=== PATIENT | female | born 1985 | race Caucasian/White ===

== ENCOUNTER → 2016-12-17 | Outpatient (CLI) | payer OTHER ==
[~2016-12-17] MED LIST: ACET50TA PO; ANUS2.5C2 PR; COLA50CA3 PO; IBUP80TA PO; LANOOIN21 TOP; MOM30SS PO; PRENTAB9 PO
--- NOTE | 2016-12-18 11:34 | REP ---
OB ULTRASOUND: HISTORY: anatomy. COMPARISON: No pertinent priors. Multiple ultrasonographic images of the gravid uterus show a single living intrauterine gestation in a cephalic presentation. Doppler interrogation of the heart shows a heart rate of 157 beats per minute. The placenta is posterior and not low lying. The subjective amniotic fluid volume is within normal limits. The cervix measures 6.9 cm in length and is closed. Evaluation of the maternal adnexal spaces showed no abnormalities. Structures visualized as unremarkable are as follows: Thalami, cavum septum pellucidum, cerebellum, cisterna magna, cerebral ventricles, spine, kidneys, urinary bladder, stomach, cord insertion, three vessel umbilical cord, extremities, four-chamber heart, right and left ventricular outflow tracts and facial features. BPD 4.6 cm = 20 weeks 0 days HC 17.5 cm = 20 weeks 0 days AC 15.1 cm = 20 weeks 2 days FL 3.4 cm = 20 weeks 6 days The estimated weight is 356 grams, which is at the 79th percentile for a 19 week 4 day gestational age. IMPRESSION: Single living intrauterine gestation as described above with an estimated gestational age of 20 weeks 3 days via composite criteria with an estimated date of delivery of 05/03/2017 by today's exam. No anomalies were detected. Signed by Marcos Perez DO 12/18/2016 11:36 A
== END ==
LOC: M RAD 15:52
PROVIDERS: ATTEND Specialist
DX: Z34.82 Encounter for supervision of other normal pregnancy, second trimester (principal)

== ENCOUNTER → 2017-02-02 | Outpatient (CLI) | payer OTHER ==
[2017-02-02 19:45] LABS: BASO % 0.3 % (0.0-1.0); EOS # 0.1 K/mm3 (0.0-0.50); EOS % 1.2 % (0.0-3.0); LARGE UNSTAINED CELL # 0.1 K/mm3 (0.0-0.4); LARGE UNSTAINED CELL % 1.1 % (0.0-4.0); LYMPH # 1.9 K/mm3 (1.5-4.5); LYMPH % 19.8 % (24.0-44.0); MEAN CORPUSCULAR HEMOGLOBIN 31.5 pg (27.0-33.0); MEAN CORPUSCULAR HGB CONC 33.5 g/dl (32.0-36.5); MEAN CORPUSCULAR VOLUME 94.2 fl (80.0-96.0); MONO # 0.5 K/mm3 (0.0-0.8); MONO % 4.9 % (0.0-5.0); NEUTROPHILS # 7.1 K/mm3 (1.8-7.7); NEUTROPHILS % 72.6 % (36.0-66.0); PLATELET COUNT, AUTOMATED 327 k/mm3 (150-450); RED CELL DISTRIBUTION WIDTH 13.4 % (11.5-14.5); WHITE BLOOD COUNT 9.7 K/mm3 (4.0-10.0)
== END ==
LOC: M SMT 14:03
PROVIDERS: ATTEND Specialist
DX: Z34.82 Encounter for supervision of other normal pregnancy, second trimester (principal)
CPT/HCPCS: 36415; 82950; 85025; 86850; 86900; 86901; J2790

== ENCOUNTER → 2017-04-14 | Outpatient (REF) | payer OTHER ==
[~2017-04-14] MED LIST changes: +ALPR0.5T3 PO; +LORA2CON5 PO; +METO1TAB32 PO; +METO25TA4 PO; +PREN1TAB11 PO; +PRENTAB31 PO; +SENO8.6T10 PO; +TUMS500C PO; +TYLE500T78 PO; +XANA0.5T PO
== END ==
LOC: M LAB REF 18:41
PROVIDERS: ATTEND Specialist
DX: Z34.83 Encounter for supervision of other normal pregnancy, third trimester (principal)

== ENCOUNTER 2017-04-20 03:18 | Observation (INO) | payer OTHER ==
[~2017-04-20] VITALS: Ht 149.9 cm; Wt 85.4 kg
[~2017-04-20 03:18] MED LIST changes: -ALPR0.5T3 PO; -LORA2CON5 PO; -METO1TAB32 PO; -METO25TA4 PO; -PREN1TAB11 PO; -PRENTAB31 PO; -SENO8.6T10 PO; -TUMS500C PO; -TYLE500T78 PO; -XANA0.5T PO
[2017-04-20] MEDS ORDERED: METO1TAB32 PO (03:27)
[2017-04-20] MEDS ORDERED: ADENOSINE 6MG/2ML INJECTION (J0153) As Ordered ONE ×2 (03:30→03:34)
[2017-04-20] MEDS ORDERED: ADENOSINE 6MG/2ML INJECTION (J0153) IV STA ×2 (03:30→03:32)
[2017-04-20] MEDS ORDERED: NS 1,000 ML IV ONE ×2 (03:30→05:15)
[2017-04-20] MEDS ORDERED: ONDANSETRON 4MG/2ML VIAL (J2405) As Ordered ONE (03:33)
[2017-04-20] MEDS ORDERED: ONDANSETRON 4MG/2ML VIAL (J2405) IV ONE (03:45)
[2017-04-20 03:47] LABS: BASO % 0.3 % (0.0-1.0); EOS # 0.1 K/mm3 (0.0-0.50); LARGE UNSTAINED CELL # 0.3 K/mm3 (0.0-0.4); LARGE UNSTAINED CELL % 3.1 % (0.0-4.0); LYMPH # 2.2 K/mm3 (1.5-4.5); LYMPH % 24.3 % (24.0-44.0); MEAN CORPUSCULAR HEMOGLOBIN 30.3 pg (27.0-33.0); MEAN CORPUSCULAR HGB CONC 33.5 g/dl (32.0-36.5); MEAN CORPUSCULAR VOLUME 90.5 fl (80.0-96.0); MONO # 0.4 K/mm3 (0.0-0.8); MONO % 4.8 % (0.0-5.0); NEUTROPHILS # 6.1 K/mm3 (1.8-7.7); NEUTROPHILS % 66.5 % (36.0-66.0); PLATELET COUNT, AUTOMATED 289 k/mm3 (150-450); RED CELL DISTRIBUTION WIDTH 13.4 % (11.5-14.5); WHITE BLOOD COUNT 9.2 K/mm3 (4.0-10.0)
[2017-04-20 03:59] LABS: ANION GAP 11 MEQ/L (8-16); BLOOD UREA NITROGEN 10 MG/DL (7-18); CALCIUM LEVEL 8.9 MG/DL (8.5-10.1); CARBON DIOXIDE LEVEL 22 MEQ/L (21-32); CHLORIDE LEVEL 106 MEQ/L (98-107); CREATININE FOR GFR 0.67 MG/DL (0.55-1.02); GLOMERULAR FILTRATION RATE > 60.0 (>60); GLUCOSE, FASTING 104 MG/DL (70-105); MAGNESIUM LEVEL 1.8 MG/DL (1.8-2.4); POTASSIUM SERUM 3.3 MEQ/L (3.5-5.1); SODIUM LEVEL 139 MEQ/L (136-145)
[2017-04-20] MEDS ORDERED: ISOVUE-370 76% 100ML VIAL (Q9967) As Ordered ONE (04:16)
[2017-04-20 04:31] LABS: INR 0.89
--- NOTE | 2017-04-20 05:00 | REPUSA ---
CLINICAL HISTORY: Chest pain, exclude PE. TECHNIQUE: Multiple incremental axial, coronal and oblique images are obtained from the thoracic inle t to the upper abdomen. Intravenous contrast material was administered as per pulmonary embolism prot ocol. COMMENTS: There is excellent opacification of pulmonary arterial system without evidence for pulmonary embolism . Aorta is of normal caliber without evidence for dissection or aneurysm. There is no evidence of pleural or parenchymal mass. There are no pleural effusions. There is no evid ence of hilar or mediastinal lymphadenopathy. The heart and great vessels are within normal limits. Images of the upper abdomen demonstrate no evidence of adrenal mass. The bony structures are free of lytic or blastic lesions. IMPRESSION: No evidence for pulmonary embolism. Thank you for your kind referral of this patient.
[2017-04-20] MEDS ORDERED: TUMS500C PO (05:17)
[2017-04-20] MEDS ORDERED: PREN1TAB11 PO (05:17)
[2017-04-20] MEDS ORDERED: TYLE500T78 PO (05:17)
[2017-04-20 06:42] VITALS: BP 108/63
--- NOTE | 2017-04-20 07:06 | HPE ---
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 She also had substernal chest discomfort. She was diagnosed with supraventricular tachycardia (SVT) early in her and started on metoprolol. Her elevated heart rate did not respond to an extra dose of metoprolol or vagal maneuvers and persisted for greater than an hour. Upon presentation to the emergency room, she was noted to have a heart rate of 210 beats per minute. She required adenosine in order to convert to a normal heart rate. A CT scan of the chest was negative for pulmonary embolus and patient was admitted for further management. COURSE: The patient initiated care at 8 weeks gestation on 10/01/2016. Her first trimester blood pressure was 116/70, weight 174 pounds. At 34 weeks gestation, the patient was seen at [facility] with heart rate greater than 200 beats per minute and was diagnosed with SVT. She had a workup with Dr. Jaimes including a normal echocardiogram. She was eventually started on metoprolol 50 mg twice a day with good effect until the day of admission. OBSTETRICAL HISTORY: 1. February of 2013 at 37 weeks vaginal delivery of a 5 pound 13 ounce male . No complications. MEDICAL HISTORY: 1. SVT. SURGICAL HISTORY: 1. Breast reduction in 2002. 2. Toe surgery in 2001. 3. Lipoma excision in 2011. 4. Tonsillectomy in 2015. ALLERGIES: 1. ROCEPHIN. SOCIAL HISTORY: The patient is . She lives in [place]. She denies cigarettes, alcohol or drug use. 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 FAMILY HISTORY: Noncontributory. PHYSICAL EXAMINATION: Blood pressure 118/76, pulse 87. She is in no apparent distress. HEAD/NECK EXAM: Normal. LUNGS: Clear. HEART: Irregular rate and rhythm. ABDOMEN: Nontender. Gravid. heart tone category 1. EXTREMITIES: Nontender. LABS: Blood type A negative. Rubella immune. RPR nonreactive. Hepatitis B and C negative. HIV negative. Group B Streptococcus (GBS) positive on 04/14/2017. ASSESSMENT: 31-year-old 2, para 1 female at 37-2/7 weeks gestation who presents with a severe episode of supraventricular tachycardia (SVT). PLAN: Admit the patient on 04/20/2017. Given that her SVT is recurrent and resistant to beta-blockers, I am going to recommend moving towards delivery via labor induction. Once the baby is delivered she can followup as an outpatient to have surgical treatment of her abnormal heart conduction pathway. The patient will receive GBS prophylaxis in labor.
--- NOTE | 2017-04-21 18:23 | ECGEPIP ---
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
[2017-04-25] MEDS ORDERED: XANA0.5T PO (16:58)
== END 2017-04-20 06:44 | disposition admitted as inpatient to this hospital (09) ==
LOC: M ED 03:18 → M ED INP 06:12
PROVIDERS: ADMIT Specialist; ATTEND Specialist
DX: O99.413 Diseases of the circulatory system complicating pregnancy, third trimester (principal); Z3A.37 37 weeks gestation of pregnancy; I47.1 Supraventricular tachycardia
CPT/HCPCS: 59025; 71275; 80048; 82550; 82553; 83735; 85025; 85610; 85730; 93005; 93041; 94760; 96374; 96375; 96376; 99285; J0153; J2405; Q9967

== ENCOUNTER 2017-04-20 06:09 | Inpatient (IN) | payer OTHER ==
[~2017-04-20] VITALS: Ht 149.9 cm; Wt 87.0 kg
[2017-04-20] VITALS (28 sets, daily range): BP systolic 99–154; BP diastolic 55–110
[~2017-04-20 06:09] MED LIST changes: +METO1TAB32 PO; +PREN1TAB11 PO; +TUMS500C PO; +TYLE500T78 PO
[2017-04-20 09:42] LABS: MEAN CORPUSCULAR HEMOGLOBIN 31.1 pg (27.0-33.0); MEAN CORPUSCULAR HGB CONC 34.1 g/dl (32.0-36.5); MEAN CORPUSCULAR VOLUME 91.2 fl (80.0-96.0); RED CELL DISTRIBUTION WIDTH 13.4 % (11.5-14.5); WHITE BLOOD COUNT 10.7 K/mm3 (4.0-10.0)
[2017-04-20] MEDS: miSOPROStol 50 MCG 1/2 TAB (S0191) PO SCH ×2 (10:31→14:41)
[2017-04-20] MEDS ORDERED: CALCIUM CARBONATE 500 MG CHEW U/D PO PRN (11:15)
[2017-04-20] MEDS ORDERED: LR 1,000 ML IV SCH (18:16)
[2017-04-20] MEDS ORDERED: OXYTOCIN DRIP 30 UNITS in APPROPRIATE DILUENT 1 EA IV SCH (18:30)
[2017-04-20] MEDS ORDERED: FENTANYL 2MCG/ML ROPIVACAINE 0.2% IN 0.9% NACL 200ML IVBAG As Ordered ONE (19:16)
[2017-04-20] MEDS ORDERED: EPIDURAL/PCA KEYS XX PRN (20:30)
[2017-04-20] MEDS ORDERED: LACTATED RINGER'S 1000 ML IV PRN (20:30)
[2017-04-20] MEDS ORDERED: EPIDURAL COMMENT XX SCH (20:30)
[2017-04-20] MEDS ORDERED: ONDANSETRON 4MG/2ML VIAL (J2405) IV PRN (20:30)
[2017-04-20] MEDS ORDERED: REFRIGERATOR IV KEYS XX PRN (20:30)
[2017-04-20] MEDS ORDERED: FENTANYL/ROPIVACAINE/NACL BAG 200 ML EPIDURAL SCH (20:30)
[2017-04-20] MEDS ORDERED: diphenhydrAMINE INJ 50MG/ML VIAL (J1200) IV PRN (20:30)
[2017-04-20] MEDS ORDERED: NALOXONE INJ 0.4 MG/1 ML VIAL (J2310) IV PRN (20:30)
[2017-04-20] MEDS ORDERED: PENICILLIN G POTASSIUM 5 MU VIAL As Ordered ONE (20:44)
[2017-04-20] MEDS ORDERED: PENICILLIN G POTASSIUM IV 5 MU in D5W MINI-BAG PLUS 100 ML IV ONE (21:00)
[2017-04-20] MEDS ORDERED: OXYTOCIN 30 UNITS IN 0.9% NaCl 500ML IV BAG (J2590) As Ordered ONE (21:46)
[2017-04-21] VITALS (28 sets, daily range): BP systolic 88–129; BP diastolic 0–73
[2017-04-21] MEDS: PENICILLIN G POTASSIUM IV 2.5 MU in D5W 100 ML IV SCH ×2 (00:49→05:29)
[2017-04-21] MEDS ORDERED: ACETAMINOPHEN 500 MG TAB PO PRN (06:45)
[2017-04-21] MEDS ORDERED: ONDANSETRON 4MG/2ML VIAL (J2405) IV PRN (06:45)
[2017-04-21] MEDS ORDERED: RHOGAM 300 MCG (1500 IU) INJ (J2790) IM SCH (06:45)
[2017-04-21] MEDS ORDERED: MEASLES,MUMPS,RUBELLA VACCINE INJ (MMR-II) (90707) SC SCH (06:45)
[2017-04-21] MEDS ORDERED: METHYLERGONOVINE MALEATE 0.2 MG TAB PO PRN (06:45)
[2017-04-21] MEDS ORDERED: OXYTOCIN DRIP 30 UNITS in APPROPRIATE DILUENT 1 EA IV ONE (06:45)
[2017-04-21] MEDS ORDERED: DIBUCAINE 1% OINTMENT 30GM TOP PRN (06:45)
[2017-04-21] MEDS: IBUPROFEN 800 MG TAB PO PRN ×2 (08:00→17:23)
[2017-04-21] MEDS: PRENATAL VITAMINS CHEWABLE TABLET PO SCH (08:31)
--- NOTE | 2017-04-21 10:24 | DN ---
DATE OF DELIVERY: 04/21/2017 PREDELIVERY DIAGNOSES: 37-2/7 weeks gestation, maternal supraventricular tachycardia (SVT). POSTDELIVERY DIAGNOSIS: Delivered. PROCEDURE: Spontaneous vaginal delivery. FABRICATION MIG WELDER: Marin Rivera MD ANESTHESIA: Epidural. ESTIMATED BLOOD LOSS: 300 mL. FINDINGS: An 8-pound 0-ounce male , scores 8 and 9. DELIVERY SUMMARY: After 2 hours of active stage, the patient had spontaneous delivery of an 8-pound 0-ounce male infant under epidural anesthesia. Nuchal cord times one was reduced manually. The shoulders delivered with ease. The infant cried spontaneously and was handed to the mother. The cord was doubly clamped and cut. The placenta delivered spontaneously and appeared to be intact. The patient received intravenous (IV) Pitocin immediately after delivery of the placenta. A second-degree perineal laceration was repaired with 2-0 chromic in the usual fashion. Sponge and needle counts were correct.
[2017-04-21] MEDS: METOPROLOL SUCC *XL* 25MG TAB (TopROL *XL*) PO SCH ×2 (11:48→13:14)
[2017-04-21] MEDS ORDERED: ADENOSINE 6MG/2ML INJECTION (J0153) IV STA ×4 (20:50→21:01)
[2017-04-21] MEDS ORDERED: ADENOSINE 6MG/2ML INJECTION (J0153) As Ordered ONE ×2 (20:51→21:06)
[2017-04-21] MEDS ORDERED: AMIODARONE HCL 150 MG/100 ML PREMIXED BAG (NEXTERONE) As Ordered ONE ×2 (20:59→21:20)
[2017-04-21] MEDS ORDERED: METOPROLOL SUCC *XL* 25MG TAB (TopROL *XL*) PO SCH (21:00)
[2017-04-21] MEDS ORDERED: AMIODARONE HCL 150 MG in APPROPRIATE DILUENT 1 EA IV STA (21:02)
[2017-04-21] MEDS ORDERED: NS 1,000 ML IV ONE (21:15)
[2017-04-21 21:21] LABS: MEAN CORPUSCULAR HGB CONC 32.8 g/dl (32.0-36.5); MEAN CORPUSCULAR VOLUME 91.5 fl (80.0-96.0); RED CELL DISTRIBUTION WIDTH 13.7 % (11.5-14.5); WHITE BLOOD COUNT 11.4 K/mm3 (4.0-10.0)
[2017-04-21] MEDS ORDERED: MAGNESIUM SULFATE 1 GM/100 ML D5W BAG (10MG/ML) (J3475) As Ordered ONE ×2 (21:24→21:43)
--- NOTE | 2017-04-21 21:31 | ECGEPIP ---
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
[2017-04-21 21:44] LABS: ANION GAP 13 MEQ/L (8-16); BLOOD UREA NITROGEN 7 MG/DL (7-18); CALCIUM LEVEL 8.3 MG/DL (8.5-10.1); CARBON DIOXIDE LEVEL 19 MEQ/L (21-32); CHLORIDE LEVEL 113 MEQ/L (98-107); CREATININE FOR GFR 0.37 MG/DL (0.55-1.02); GLOMERULAR FILTRATION RATE > 60.0 (>60); GLUCOSE, FASTING 95 MG/DL (70-105); MAGNESIUM LEVEL 1.5 MG/DL (1.8-2.4); POTASSIUM SERUM 3.4 MEQ/L (3.5-5.1); SODIUM LEVEL 145 MEQ/L (136-145)
[2017-04-21] MEDS ORDERED: KCL 10MEQ IN STERILE WATER 100ML As Ordered ONE (21:46)
[2017-04-21] MEDS: MAG SULF 1GM/100ML (MAG RUN) 1 GM in APPROPRIATE DILUENT 1 EA IV SCH ×5 (22:00→23:08)
[2017-04-21] MEDS ORDERED: MORPHINE 2 MG/ML 1ML SYRINGE As Ordered ONE (22:01)
[2017-04-21] MEDS ORDERED: MORPHINE 2 MG/ML 1ML SYRINGE IV ONE (22:05)
[2017-04-21] MEDS: KCL 10MEQ IN 100ML SWI (KRUN) 10 MEQ in APPROPRIATE DILUENT 1 EA IV SCH ×2 (23:05)
[2017-04-21] MEDS ORDERED: ADENOSINE 6MG/2ML INJECTION (J0153) ONE (23:09)
--- NOTE | 2017-04-21 23:49 | CR.PDOC ---
[facility] Consultation Consultation DATE OF CONSULTATION: 04/21/17 PRIMARY CARE PHYSICIAN: Unknown REFERRING PROVIDER: Dr. Ponce ATTENDING PHYSICIAN: Dr. Ponce REASON FOR CONSULTATION/CHIEF COMPLAINT: SVT HISTORY OF PRESENT ILLNESS: This is a 31-year-old female with past medical history of SVT diagnosed a month ago, as well as preeclampsia on the last who presented on 04/20/17, found to be in SVT despite being on metoprolol, given 3 doses of adenosine with resolution of the SVT. Since then the patient has had induction earlier today with a non-complicated delivery and no significant bleeding. Per staff as well as patient, the patient has been having episodes of SVT since 5 PM, with heart rates ranging from 100-180, that has been periodic. I was called by Dr. Mendieta at approximately 8:45pm [facility], who has noted that the patient has been persistently in SVT heart rate 200s and is diaphoretic. The patient was transferred to the ICU where I examined the patient. The patient stated that she has palpitations and midsternal chest pain with the rapid heart rate. She also becomes short of breath and feels lightheaded. The patient's blood pressure was stable. The patient received 4 doses of adenosine 6 , 12, 12, 12, with only temporary improvement of her SVT. I have spoken with Dr. Weir who recommended starting the patient on amiodarone 150 mg 1. The patient also received 1 L normal saline bolus. Once her blood pressure improved , the patient was started on Cardizem IV followed by PO. The patient converted to normal sinus rhythm, her chest pain/shortness of breath/palpitations have resolved. Her blood pressure is stable at this point. Have discussed the above with the family, the patient, as well as Dr. Mendieta and . We will continue to monitor the patient ICU, and continue by mouth Cardizem for now. Her electrolytes of potassium of 3.3 and a magnesium of 1.5 have also been replaced. ALLERGIES: Please see below. HOME MEDICATIONS: Please see below. PAST MEDICAL HISTORY: As per HPI PAST SURGICAL HISTORY: Breast reduction, toe surgery, lipoma excision, tonsillectomy SOCIAL HISTORY: Denies tobacco, alcohol, illicit drug use. Lives with FAMILY HISTORY: +Fm h/o heart dz ALLERGIES: Please see below. REVIEW OF SYSTEMS: HEENT: Denies sore throat/headache CARDIOVASCULAR: + chest pain/palpitations RESPIRATORY: + shortness of breath. No cough GASTROINTESTINAL: denies nausea/vomiting GENITOURINARY: Denies dysuria/urinary urgency. MUSCULOSKELETAL: Denies myalgias/arthralgias NEUROLOGICAL: Denies any focal weakness HOME MEDICATIONS: Please see below. PHYSICAL EXAMINATION: Vitals: (see below) General: No acute distress, laying comfortably in bed. HEENT: Moist mucous membranes. Neck: No JVD or lymphadenopathy Cardiac: Tachycardic, No murmurs Pulm: Diminished breath sounds at the bases b/l. No wheezing, rhonchi Abd: NT/ND + BS Ext: No edema or cyanosis LABORATORY DATA: See below. IMAGING: Chest x-ray pending. Initial EKG - SVT with ST depressions in the anterolateral leads. Now back in normal sinus rhythm with no acute ST changes. MICROBIOLOGY: Please see below. ASSESSMENT/PLAN: 1. SVT- patient has been diagnosed with this a month ago, and has been following up with Dr. Jaimes. She states that she had an echocardiogram recently which was normal. She had also a CTA of the chest which was within normal limits. We will maintain mag greater than 2, and potassium greater than 4. Status post amiodarone 150mg 1. Status post adenosine, Cardizem IV followed by PO. Now back in normal sinus rhythm. We'll continue to monitor in ICU. 2. Elevated troponin- likely secondary to SVT. We will trend markers. Cardiology on board. Echocardiogram 3. , with non-complicated. Management per Dr. Ponce DVT prophylaxis- SCDs Patient will be followed by Dr. Mariah Weinstein starting 04/22/17 at 7 AM. Vital Signs/I&O Vital Signs Date Time Temp Pulse Resp B/P (MAP) Pulse Ox O2 Delivery O2 Flow Rate FiO2 04/21/17 22:30 191 103/55 04/21/17 22:05 36 100 04/21/17 20:45 Non-Rebreather 10.0 04/21/17 20:10 97.6 I&O- Last 24 Hours up to 6 AM 04/21/17 06:00 Output Total 1100 ml Balance -1100 ml Laboratory Data Labs 24H Laboratory Tests 2 04/21/17 21:13: Anion Gap 13, Glomerular Filtration Rate > 60.0, Blood Urea Nitrogen 7, Creatinine 0.37L, Sodium Level 145, Potassium Level 3.4L, Chloride Level 113H, Carbon Dioxide Level 19L, Calcium Level 8.3L, Total Creatine Kinase 226H, Magnesium Level 1.5L, Creatine Kinase MB 4.7H, Creatine Kinase MB Relative Index 2.07, Troponin I 0.44H CBC/BMP Laboratory Tests 04/21/17 21:13 Red Blood Count 3.49 L, Mean Corpuscular Volume 91.5, Mean Corpuscular Hemoglobin 30.0, Mean Corpuscular Hemoglobin Concent 32.8, Red Cell Distribution Width 13.7, Calcium Level 8.3 L, Total Creatine Kinase 226 H Allergies Coded Allergies: Ceftriaxone (Unverified Allergy, Intermediate, HIVES, 04/21/17) Cephalosporins (Unverified Allergy, Unknown, 11/15/12) Home Medications Scheduled Metoprolol Succinate (Metoprolol Succinate ER) 25 Mg Tab, 25 MG PO QPM, ( Reported) TAKEN WITH DINNER; LAST DOSE WAS TAKEN PER DOCTOR'S ORDERS Metoprolol Succinate (Metoprolol Succinate ER) 25 Mg Tab, 25 MG PO DAILY, ( Reported) Metoprolol Tartrate (Metoprolol Tartrate) 25 Mg Tab, 25 MG PO Q6H, #120 Multivitamins/ ( Vitamin 27-0.8 mg) 1 Tab Tab, 1 TAB PO QPM, ( Reported) TAKEN WITH DINNER Multivitamins/ ( Forte) 1 Tab Tab, 1 TAB PO DAILY, (Reported) Scheduled PRN Acetaminophen (Tylenol Extra Strength) 500 Mg Tab, 500 MG PO Q4H PRN for PAIN / FEVER, (Reported) Acetaminophen (Mapap) 500 Mg Tab, 1,000 MG PO Q6HP PRN for PAIN, (Reported) Alprazolam (Alprazolam) 0.5 Mg Tab, 1 MG PO Q4HP PRN for ANXIETY, #30 Alprazolam (Xanax) 0.5 Mg Tab, 0.5 MG PO Q4HP PRN for ANXIETY/AGITATION, #90 Calcium Carbonate (Tums) 500 Mg Chw, 1,000 MG PO Q4H PRN for HEARTBURN/ INDIGESTION, (Reported) Calcium Carbonate (Tums) 500 Mg Chw, 500 MG PO DAILY PRN for HEARTBURN, ( Reported) Docusate Sod/Senna (Senokot S 8.6-50 mg) 1 Tab Tab, 1 TAB PO BIDP PRN for BOWEL CARE/CONSTIPATION, #20 Ibuprofen (Ibuprofen) 800 Mg Tab, 800 MG PO Q8HP PRN for MODERATE PAIN (PS 5-7) , #30 WILFREDO PASCUAL MD Apr 21, 2017 23:49
[2017-04-22] VITALS (11 sets, daily range): BP systolic 98–119; BP diastolic 59–75
[2017-04-22] MEDS: KCL 10MEQ IN 100ML SWI (KRUN) 10 MEQ in APPROPRIATE DILUENT 1 EA IV SCH ×4 (01:19→02:45)
[2017-04-22 03:08] LABS: MEAN CORPUSCULAR HGB CONC 33.4 g/dl (32.0-36.5); RED CELL DISTRIBUTION WIDTH 13.8 % (11.5-14.5); WHITE BLOOD COUNT 9.4 K/mm3 (4.0-10.0)
[2017-04-22 03:31] LABS: ANION GAP 8 MEQ/L (8-16); BLOOD UREA NITROGEN 4 MG/DL (7-18); CALCIUM LEVEL 7.8 MG/DL (8.5-10.1); CARBON DIOXIDE LEVEL 23 MEQ/L (21-32); CHLORIDE LEVEL 115 MEQ/L (98-107); CREATININE FOR GFR 0.29 MG/DL (0.55-1.02); GLOMERULAR FILTRATION RATE > 60.0 (>60); GLUCOSE, FASTING 75 MG/DL (70-105); MAGNESIUM LEVEL 1.9 MG/DL (1.8-2.4); POTASSIUM SERUM 3.9 MEQ/L (3.5-5.1); SODIUM LEVEL 146 MEQ/L (136-145)
[2017-04-22] MEDS: IBUPROFEN 800 MG TAB PO PRN ×2 (08:09→20:19)
[2017-04-22] MEDS: METOPROLOL TART 25 MG TABLET PO SCH ×4 (08:25→23:54)
[2017-04-22] MEDS ORDERED: TUMS500C PO (10:25)
[2017-04-22] MEDS ORDERED: PRENTAB31 PO (10:25)
[2017-04-22] MEDS ORDERED: METO25TA4 PO (10:25)
[2017-04-22] MEDS: PRENATAL VITAMINS CHEWABLE TABLET PO SCH (13:07)
--- NOTE | 2017-04-22 14:50 | IPN ---
DATE: 04/22/2017 The patient is seen and examined at the bedside. Chart has been reviewed. The patient developed significant supraventricular tachycardia (SVT) yesterday and despite use of metoprolol and adenosine, the patient continued to have episodic episodes of heart rate ranging from 100 to 225. The patient had been placed on Cardizem drip. Blood pressure appears to be well maintained between 95 systolic to 120. She currently has no new complaints. Denies any shortness of breath, lightheadedness, or dizziness. She did have episodes of chest tightness during the SVT episode, which subsided after a few seconds. While the patient was in the intensive care unit (ICU), the patient had another episode with heart rate of 191, which improved with vasovagal maneuvers and continued use of Cardizem. She had prior episodes in the past, which had been intermittent. She had delivered yesterday and currently complains of uterine contraction pain and pelvic pain. VITAL SIGNS: Temperature 98.8, pulse 91 to 225, currently at 91, respiratory rate 20, blood pressure 114/73, 100% on 2 liters nasal cannula. GENERAL: The patient is awake, alert, oriented times three. Answering questions appropriately. No cyanosis, jugular venous distention (JVD), cervical lymphadenopathy. Pupils are round and reactive to light and accommodation. Extraocular muscles are intact. No neck rigidity. No pharyngeal erythema or tonsillar exudates. LUNGS: Clear to auscultation. No wheezes, rales, or rhonchi. HEART: S1, S2. Tachycardic. No murmurs noted. ABDOMEN: Soft. Slightly tender in bilateral lower quadrants. No rebound or guarding. Positive bowel sounds. EXTREMITIES: No pitting edema. LABORATORY DATA: White count 9.4, hemoglobin 9.7, hematocrit 28.9, platelet count 235, previous hemoglobin of 10.5, hematocrit of 31.9. Sodium 145, potassium 3.9, chloride 115, bicarbonate 23, BUN 4, creatinine 0.29, glucose of 75, calcium of 7.8, magnesium 1.9. Troponin 0.82, total CK 187, MB fraction of 4.2. IMAGING STUDIES: Chest x-ray: Pending official report. ASSESSMENT AND PLAN: This is a 31-year-old female with a prior history of supraventricular tachycardia (SVT), treated as an outpatient by Dr. Jaimes, [facility]. With metoprolol had been rate controlled with intermittent episodes during the with development of sustained SVT. The patient delivered yesterday and was transferred to telemetry unit due to uncontrolled SVT despite vasovagal maneuvers, three doses of adenosine, and metoprolol. The patient was given a dose of amiodarone times one and normal saline IV bolus. The patient's blood pressure is currently stable. Currently on oral Cardizem. CURRENT ISSUES: 1. SVT. The patient did not respond to adenosine times three doses. Metoprolol was given. IV amiodarone and normal saline bolus and Cardizem currently with better control. Currently at 97. She is asymptomatic. We will check a TSH level for completeness. Continue on Cardizem 30 every 6 hours. Echocardiogram due to troponin leak, most likely secondary to acute SVT and tachyarrhythmia. Defer to Dr. Weir for further changes with her medications. Obtain a 2-dimensional echocardiogram. Defer to [facility] for possible ablation if no significant improvement on Cardizem. 2. Hypernatremia, most likely secondary to normal saline given to improve the patient's blood pressure. Electrolyte abnormalities with low magnesium and low potassium, have been supplemented. 3. Abnormal cardiac markers secondary to the tachycardia. Currently has no complaints of chest pain. Unlikely to have coronary artery disease. 4. Status post vaginal delivery, , followed by Dr. Ponce and Dr. Rivera. Avoid breast feeding. [facility]
--- NOTE | 2017-04-22 14:53 | CR ---
DATE: 04/22/2017 Mrs. French presented to [facility] on 04/20/2017 with supraventricular tachycardia (SVT). She eventually responded to repeated doses of adenosine and converted back to normal rhythm. Because of post conversion, she was found to have a right bundle branch block, a CT angiography of chest looking for possibility of pulmonary embolism, was done and was negative. She was subsequently taken from emergency room to labor and delivery and was induced and yesterday on 04/21/2017 delivered a healthy boy via a vaginal . The labor itself was uneventful but then yesterday afternoon she started having episodes of tachycardia. Apparently, her heart rate fluctuated anywhere between 100-180 beats per minute but then in the evening hours she suddenly developed chest discomfort and was found to have a narrow complex tachycardia with ventricular rate exceeding 200 beats per minute. She was moved to intensive care unit and was attended to by Dr. Winchester. She received a total four doses of adenosine, which apparently were only temporarily effective and the arrhythmia would relapse. Subsequently, she received 150 mg of amiodarone and Cardizem IV and orally. Eventually all these interventions lead to samaritan of sinus rhythm, but she had a fast heart rate over 2 hours. During the episode, she was diaphoretic. She had chest discomfort. Review of the ECG from the episode reveals narrow complex tachycardia with ventricular rate between 206 and 208 beats per minute. There were ischemic abnormalities on her EKG with ST-segment depressions, precordially that were fairly prominent up to 3 mm at the time. I do not see any ECG from this morning. Patient is currently feeling well. She denies any chest pain or shortness of breath, but she is very apprehensive fearing that there will be recurrence of arrhythmia. PAST MEDICAL HISTORY: SVT, started 1 month ago. Otherwise, no prior significant medical history. SURGICAL HISTORY: Positive for breast reduction surgery, toe surgery, excision of lipoma, and tonsillectomy. SOCIAL HISTORY: The patient is . This was her second child. She does not smoke, does not drink alcohol. FAMILY HISTORY: Not relevant to the situation. She does not have any first-degree relatives with sudden cardiac or arrhythmias. ALLERGY: She reports allergy to CEFTRIAXONE. REVIEW OF SYSTEMS: She denies any recent fever, chills, nausea, vomiting, diaphoresis. She has had no episode of chest pains outside of the episode of tachycardia. There is no history of prior cardiac evaluation, but she did have a syncopal event during the episode of SVT before she came to our emergency room, the details are not completely clear. She has mild abdominal tenderness after vaginal delivery. There is no peripheral edema but she had preeclampsia during her prior . The rest of review of system is negative. PHYSICAL EXAMINATION: Mrs. French is a pleasant, mildly obese, white female. She does not appear to be in any distress but is certainly anxious. Last documented blood pressure was 98/59, heart rate has been in 80s with sinus rhythm. Saturation is 100% on 2 liters of oxygen by nasal cannula. Fluid balance is about 1.5 liters negative yesterday. Weight was not obtained this morning. She is alert and oriented and appropriate Her jugular venous pressure is not up. Lungs are clear. Heart exam reveals regular rhythm. I do not appreciate any gallop, rub or murmur. Abdomen is soft and nontender. There is no edema. Neurologically, she is intact. LABORATORY: She had a urine screen on admission that was negative. Basic metabolic panel today is normal. She had two sets of cardiac enzymes, CK relative index has been negative but her troponin was elevated at 0.4 yesterday evening and 0.8 at 3 o'clock this morning. Her CBC this morning shows hemoglobin 9.7, hematocrit 28.9, platelet count 235,000. ASSESSMENT AND PLAN: Mrs. French is a 31-year-old female who has had episodes of narrow complex tachycardia since approximately early March 2017. She had fairly sustained episode prior to presentation on 04/20/2017 that reportedly was associated with near/syncopal event. At this point, she had yet another very persistent episode of SVT with a very fast ventricular rate that lasted over 2 hours and was difficult to terminate. She did not respond well to adenosine and eventually received amiodarone and Cardizem. She has a mild troponin elevation. As far as the SVT is concerned, I am still quite optimistic that now when she delivered and the hormone level will start returning to normal that the arrhythmia will calm down. I am going to return instead of Cardizem to beta blockers and will give her metoprolol tartrate 25 mg every 6 hours. I am hoping that this will be sufficient to prevent relapses. If not, then we can utilize amiodarone, flecainide or even Cardizem if needed. In an absolutely worse case scenario, when we have difficulty controlling the rate, she may need ablation, but I am somewhat optimistic that it can be avoided. As far as troponin elevation is concerned, I believe it is likely to related to prolonged duration of extremely fast heart rate. An echocardiogram was ordered but I do not suspect that she suffered an ischemic event. We will obtain a followup electrocardiogram tomorrow and also one this morning. Dr. Weir is covering this weekend. MELI
[2017-04-22] MEDS ORDERED: ALPRAZolam 0.5 MG TAB PO ONE (16:30)
--- NOTE | 2017-04-22 16:44 | ECGEPIP ---
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
[2017-04-22] MEDS: DOCUSATE SODIUM 100 MG CAP PO PRN (20:18)
[2017-04-22] MEDS: ALPRAZolam 0.5 MG TAB PO PRN (20:45)
[2017-04-23 04:00] VITALS: BP 105/66
[2017-04-23] MEDS: ALPRAZolam 0.5 MG TAB PO PRN ×2 (04:08→09:43)
[2017-04-23 04:48] LABS: MEAN CORPUSCULAR HEMOGLOBIN 30.3 pg (27.0-33.0); MEAN CORPUSCULAR HGB CONC 32.6 g/dl (32.0-36.5); MEAN CORPUSCULAR VOLUME 92.8 fl (80.0-96.0); RED CELL DISTRIBUTION WIDTH 13.7 % (11.5-14.5); WHITE BLOOD COUNT 7.5 K/mm3 (4.0-10.0)
[2017-04-23 05:17] LABS: ANION GAP 8 MEQ/L (8-16); BLOOD UREA NITROGEN 8 MG/DL (7-18); CALCIUM LEVEL 7.5 MG/DL (8.5-10.1); CARBON DIOXIDE LEVEL 25 MEQ/L (21-32); CHLORIDE LEVEL 111 MEQ/L (98-107); CREATININE FOR GFR 0.45 MG/DL (0.55-1.02); GLUCOSE, FASTING 68 MG/DL (70-105); MAGNESIUM LEVEL 1.7 MG/DL (1.8-2.4); POTASSIUM SERUM 3.6 MEQ/L (3.5-5.1); SODIUM LEVEL 144 MEQ/L (136-145)
[2017-04-23 05:18] LABS: GLOMERULAR FILTRATION RATE > 60.0 (>60)
[2017-04-23 06:00] VITALS: BP 106/64
[2017-04-23] MEDS: METOPROLOL TART 25 MG TABLET PO SCH (06:00)
[2017-04-23] MEDS ORDERED: METO1TAB32 PO (06:05)
[2017-04-23 08:00] VITALS: BP 127/77
[2017-04-23] MEDS ORDERED: IBUP80TA PO (08:37)
[2017-04-23] MEDS ORDERED: METO25TA4 PO (08:37)
[2017-04-23] MEDS ORDERED: ALPR0.5T3 PO (08:37)
[2017-04-23] MEDS ORDERED: SENO8.6T10 PO (08:37)
[2017-04-23] MEDS: DOCUSATE SODIUM 100 MG CAP PO PRN (09:43)
[2017-04-23] MEDS: IBUPROFEN 800 MG TAB PO PRN (09:44)
[2017-04-23] MEDS: PRENATAL VITAMINS CHEWABLE TABLET PO SCH (09:44)
[2017-04-23] MEDS ORDERED: MAG SULF 1GM/100ML (MAG RUN) 1 GM in APPROPRIATE DILUENT 1 EA IV ONE (09:45)
[2017-04-23] MEDS ORDERED: ACET50TA PO (13:39)
[2017-04-23] MEDS ORDERED: LORA2CON5 PO (13:50)
[2017-04-23] MEDS ORDERED: METOPROLOL TART 25 MG TABLET PO SCH (16:00)
--- NOTE | 2017-04-24 09:01 | ECGEPIP ---
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
--- NOTE | 2017-04-25 11:28 | REP ---
Clinical: Shortness of breath . Comparison: None . Findings: The mediastinum and cardiac silhouette are stable and within normal limits for portable technique. The lung fuller are clear without acute consolidation, effusion, or pneumothorax. Skeletal structures are intact. Impression: No acute cardiopulmonary process appreciated. Signed by Neville Draper MD 04/22/2017 07:27 A
--- NOTE | 2017-04-25 12:07 | IPN ---
DATE: 04/23/2017 Patient is seen and examined at the bedside. Chart has been reviewed. After Xanax was given yesterday, the patient stated that her palpitations have somewhat subsided. She was changed to metoprolol with a good result. Heart rate has been maintained at the rate of 71 to 90 overnight. She currently denies any chest pain, pressure, tightness, shortness of breath, lightheadedness or dizziness, ambulating well within the room, going to the bedside commode without much difficulty. No other issues per nursing. Temperature 99, pulse 83, respiratory rate 16, blood pressure 105/66, 100% on room air. Generally, the patient is awake, alert, oriented times three, answering questions appropriately. No cyanosis, jugular venous distention (JVD), cervical lymphadenopathy. Pupils round and reactive. Extraocular muscles are intact. No neck rigidity, pharyngeal erythema or tonsillar exudates. Neck is supple. Full range of motion. Lungs are clear to auscultation. No wheezing, rales or rhonchi. Heart: S1, S2, tachycardic. No murmurs noted. Abdomen: Soft, nontender, nondistended. Positive bowel sounds times four quadrants. Extremities: No pitting edema. LABORATORY DATA: White count 7.5, hemoglobin 9.8, hematocrit 30, platelet count 239. Sodium 144, potassium 3.6, chloride 111, bicarbonate 25, BUN 8, creatinine 0.45, glucose of 68, magnesium of 1.7. ASSESSMENT AND PLAN: This is a 31-year-old female, history of supraventricular tachycardia (SVT), treated as an outpatient with [facility], with metoprolol, was rate controlled with intermittent episodes during the and development of sustained SVT. The patient delivered 2 days ago, was transferred to telemetry unit due to uncontrolled SVT despite vasovagal maneuvers, three doses of adenosine and metoprolol, was given one dose of amiodarone and normal saline IV bolus. The patient was placed on Cardizem 30 mg every 6 hours, transitioned to metoprolol 25 mg every 6 hours overnight with Xanax 1 mg every 4 hours as needed for anxiety. Patient has had resolution of symptoms. CURRENT ISSUES: 1. SVT, resolved. Patient is controlled currently on metoprolol 25 mg every 6 hours, sinus rhythm. Thyroid-stimulating hormone (TSH) was within normal limits. No signs of instability. Vital signs have remained stable. No complaints of dizziness or lightheadedness this morning, chest pain or pressure. 2. Anxiety. On as needed Xanax. Patient is currently not . 3. . Status post vaginal delivery. Followed by Dr. Ponce and Dr. Rivera. Avoid . 4. Abnormal cardiac markers. Most likely due to sustained supraventricular tachycardia. DISPOSITION: The patient is currently stable and may be discharged home. Xanax and metoprolol have been sent to her outpatient pharmacy.
--- NOTE | 2017-04-25 12:17 | IPN ---
DATE OF SERVICE: 04/23/2017 Mrs. Pooja French was seen this morning, she was laying in bed in no acute distress. She denies any chest pain, dizziness, or lightheadedness, shortness of breath. She has been ambulating in the room. Yesterday she had a brief fluttering sensation in the chest, but she told me most of the time she was not seeing any arrhythmias on the telemetry/monitor. She has a history of recurrent supraventricular tachycardia (SVT) with a recent syncopal episode at home prior to this hospitalization. Her most recent major episode was on 04/21/2017 after her delivery. At that time, she also was found to have hypokalemic and hypomagnesemic. Those were corrected. She was started yesterday on metoprolol tartrate four times a day. The plan is to discharge her later today or tomorrow. On physical examination, patient is alert and oriented, in no acute distress. Her blood pressure this morning was 127/77 with a pulse of 66, but 1 hour at bedside it was 88 on the monitor, respiration 16-20 and her maximum temperature was 99.0 degree Fahrenheit with oxygen saturation of 99% on room air. Examination of the head, ears, eyes, nose and throat: Atraumatic. Neck is supple. No jugular venous distention (JVD). The lungs were clear bilateral on auscultation without any wheezing or crackles. The heart examination revealed normal S1 and S2 without gallops. The point of maximum impulse (PMI) is not displaced. There is no rub. Abdomen examination was not done. Extremities revealed trace edema. Neurologic examination is negative for focal deficit. LABORATORY DATA: CBC done today revealed a WBC of 7.5, hemoglobin 9.8, hematocrit 30.1 and platelets 239,000. BMP revealed a sodium of 144, potassium 3.6, chloride 111, and CO2 25, BUN 8, creatinine 0.45, GFR more than 60, fasting glucose 68, calcium of 7.5. Serum magnesium is 1.7. Serum troponin was 0.44, 0.82, and 0.44 respectively #1 and #3. TSH on 04/22/2017 was 3.36. IMPRESSION: 1. Symptomatic and supraventricular tachycardia and patient is aware of that, diagnosed during this , with a history of syncope. She will be discharged home on metoprolol and it was decreased to three times a day. She is well aware about Valsalva maneuvers. She will increase potassium in her diet and she will get some magnesium supplement [id number] and this was discussed with her. She also would benefit from EP evaluation and ablation and she is in agreement. This will be arranged by her primary shingles roofer helper when she sees him as outpatient. 2. Electrolyte abnormalities and this is being addressed. She got on 1 gram of magnesium earlier today. Her hypokalemia is now corrected. 3. Abnormal serum troponin most likely related to the supraventricular tachycardia (SVT). It was a pleasure to participate in the care of Mrs. Pooja French. She appears to be stable for discharge. She is well aware to call the office if any issues. Her case was discussed with her OB-LOG SORTER covering today. She also will be discharged home on anti-anxiety. MELI
--- NOTE | 2017-04-25 12:38 | ECHO ---
DATE OF SERVICE: 04/21/2017 REFERRING PROVIDER: Dr. Marin Rivera PRIMARY SOFT SUGAR SUPERVISOR: Dr. Estrellita Jaimes PATIENT LOCATION: Room 3206 REASON FOR ECHOCARDIOGRAM: Abnormal EKG, supraventricular tachycardia, post delivery. 2D MEASUREMENTS: IVS: 1.2 cm LV: 4.5 cm LVPW: 1.1 cm LA: 4.4 cm Aorta: 2.6 cm RV: 3.1 cm Ascending aorta: 3.1 cm IVC: 1.5 cm DOPPLER MEASUREMENTS: Mitral E: 0.97 Mitral A: 0.64 with a ratio of 1.5 Maximum tricuspid valve velocity: 2.2 m/s 2D COMMENTS: 1. Normal left ventricular size, wall thickness, and normal global left ventricular systolic function. The estimated global left ventricular systolic ejection fraction is 60-65%. 2. Mildly enlarged left atrium. Normal right atrium and right ventricle. 3. Normal aortic root. 4. The atrial septum appeared to be normal without evidence of defect or shunt. 5. No pericardial effusions seen. 6. The aortic valve, mitral valve, tricuspid valve, and pulmonic valve appear to be normal. The proximal pulmonary artery branches were not well visualized. 7. The inferior vena cava was normal in size, central venous pressure is most likely normal. DOPPLER: It detects trace mitral regurgitation and trace tricuspid regurgitation. The calculated pulmonary artery systolic pressure was normal, less than 30 mmHg. Assessment of the left ventricular diastolic function also appears to be normal. IMPRESSION: 1. Normal global left ventricular systolic and diastolic function. 2. Trace mitral regurgitation. 3. Trace tricuspid regurgitation with a normal calculated pulmonary artery systolic pressure. 4. Trace pulmonic regurgitation also detected. cc: MD Estrellita Gooden MD MTDD
[2017-04-25] MEDS ORDERED: XANA0.5T PO (16:58)
--- NOTE | 2017-04-27 16:06 | DSES ---
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 She also had substernal chest discomfort. She had previously been diagnosed with supraventricular tachycardia (SVT) about a month prior to admission, and she was started on metoprolol for this. Her elevated heart rate on the evening of admission did not respond to an extra dose of metoprolol or the vagal maneuvers and persisted for greater than an hour. She presented to the emergency room and was noted to have a heart rate of 210 beats per minute. She required adenosine in order to convert to a normal heart rate. CT scan of the chest was negative for pulmonary embolus. The patient was admitted for further management. HOSPITAL COURSE: After resistant episode of SVT in the severe range, the decision was made to move toward delivery. Labor induction was commenced. Patient made slow but adequate progress in labor. On 04/21/2017 the patient had spontaneous delivery of an 8-pound 0-ounce male , scores 8 and 9. She had no episodes of SVT during her labor or delivery. Her course was significant for another serious episode of SVT, approximately 15-17 hours after delivery. It did respond to medication initially or vagal maneuvers. She was treated to the intensive care unit for surveillance. She required multiple medications, including adenosine and amiodarone in order to convert to a normal rate. She was followed by cardiology in the intensive care unit. The remainder of her course was unremarkable. She had no further episodes. She was restarted on metoprolol daily. The hope from cardiology was that her episodes of SVT would decrease dramatically now that she was no longer . She was deemed stable for discharge on day #2. ADMISSION DIAGNOSES: 1. at 37 weeks. 2. Maternal supraventricular tachycardia. DISCHARGE DIAGNOSIS: Delivered. PROCEDURE: Spontaneous vaginal delivery. DISPOSITION: Patient will followup with Dr. Rivera in 6 weeks. Patient will followup with cardiology for SVT. She will continue on metoprolol. [facility]ITALTrang
== END 2017-04-23 14:00 | disposition home or self-care (01) | DRG 774 ==
LOC: UNMERGE 06:09 → M LDI 06:09 → MERGE 06:09 → M OBS 04-21 07:56 → M ICU 04-21 20:47 → M OBS 04-23 12:10
PROVIDERS: ADMIT Specialist; ATTEND Specialist
PROC: 10E0XZZ Delivery of Products of Conception, External Approach (ICD-10-PCS; principal; 2017-04-21)
PROC: 0KQM0ZZ Repair Perineum Muscle, Open Approach (ICD-10-PCS; 2017-04-21)
DX: O99.42 Diseases of the circulatory system complicating childbirth (principal); I47.1 Supraventricular tachycardia; E87.0 Hyperosmolality and hypernatremia; O70.1 Second degree perineal laceration during delivery; Z37.0 Single live birth; Z3A.37 37 weeks gestation of pregnancy; O69.82X0 Labor and delivery complicated by other cord entanglement, without compression, not applicable or unspecified; Z88.8 Allergy status to other drugs, medicaments and biological substances; O99.284 Endocrine, nutritional and metabolic diseases complicating childbirth; E87.6 Hypokalemia; E83.42 Hypomagnesemia; I45.10 Unspecified right bundle-branch block; F41.9 Anxiety disorder, unspecified; O99.344 Other mental disorders complicating childbirth

== ENCOUNTER → 2017-10-03 | Outpatient (CLI) | payer OTHER | LOC: M RAD 07:44 | DX: K80.20 Calculus of gallbladder without cholecystitis without obstruction (principal); K76.89 Other specified diseases of liver | CPT/HCPCS: 76705 ==

== ENCOUNTER → 2019-01-17 | Outpatient (REF) | payer OTHER ==
[~2019-01-17] MED LIST changes: -ACET50TA PO; +ALPR0.5T3 PO; +LORA2CON5 PO; +MAPA500T17 PO; +MAPA500T2 PO; +METO25TA4 PO; +PRENTAB31 PO; +SENO8.6T10 PO; +XANA0.5T PO
[2019-01-18 11:51] LABS: BASO % 0.7 % (0.0-1.0); EOS # 0.2 10^3/uL (0.0-0.50); EOS % 2.8 % (0.0-3.0); HEMATOCRIT 38.7 % (36.0-47.0); HEMOGLOBIN 12.3 g/dl (12.0-15.5); LYMPH # 1.9 10^3/uL (1.5-4.5); LYMPH % 31.2 % (24.0-44.0); MEAN CORPUSCULAR HEMOGLOBIN 28.3 pg (27.0-33.0); MEAN CORPUSCULAR HGB CONC 31.8 g/dl (32.0-36.5); MEAN CORPUSCULAR VOLUME 89.2 fl (80.0-96.0); MONO # 0.8 10^3/uL (0.0-0.8); MONO % 12.9 % (0.0-5.0); NEUTROPHILS # 3.1 10^3/uL (1.8-7.7); NEUTROPHILS % 52.1 % (36.0-66.0); PLATELET COUNT, AUTOMATED 350 10^3/uL (150-450); RED BLOOD COUNT 4.34 10^6/uL (4.00-5.40)
[2019-01-18 12:34] LABS: ERYTHROCYTE SEDIMENTATION RATE 28 mm/hr (0-20)
== END ==
LOC: M LABDRAWC 11:23
PROVIDERS: ATTEND Nurse Practitioner Family
DX: M05.79 Rheumatoid arthritis with rheumatoid factor of multiple sites without organ or systems involvement (principal)

== ENCOUNTER → 2019-09-06 | Outpatient (REF) | payer OTHER | LOC: M SFHCWAGY 10:37 | PROVIDERS: ATTEND Specialist | DX: Z01.419 Encounter for gynecological examination (general) (routine) without abnormal findings (principal) ==

== ENCOUNTER → 2020-04-29 | Outpatient (CLI) | payer OTHER ==
--- NOTE | 2020-04-29 12:29 | REPMRS ---
Patient History The patient states she had a clinical breast exam in 2019. Family history of pancreatic cancer in paternal grandmother, colorectal cancer in paternal grandfather, pancreatic cancer in maternal grandfather. Patient states she had bilateral brast reduction surgery @ age 17yrs(2002) Digital Woman Screen Mammo: April 29, 2020 - Exam #: [id number] Bilateral CC and MLO view(s) were taken. Technologist: Yesi Lennon, Technologist No prior studies available for comparison. FINDINGS: There are scattered fibroglandular densities. The Volpara volumetric breast density category is: B. There is no evidence of dominant mass, architectural distortion, or grouped microcalcification typical of malignancy. 3-D tomosynthesis shows no additional findings. Assessment: BI-RADS/ACR category 1 mammogram. Negative Mammogram. Recommendation Routine screening mammogram of both breasts in 1 year (for women over age 40). This patient's Lifetime Breast Cancer RIsk is estimated at 14.0 %. This mammogram was interpreted with the aid of an FDA-approved computer-aided dectection system. Electronically Signed By: Basil Qiu MD 04/29/20 [id number]
== END ==
LOC: M WHC 06:37
PROVIDERS: ATTEND Specialist
DX: R92.2 Inconclusive mammogram (principal)

== ENCOUNTER → 2021-10-15 | Outpatient (REF) | payer OTHER ==
[~2021-10-15] MED LIST changes: +B-2100TA PO; +CLAR10CA3 PO; +HYDR200T3 PO; +RA N1TAB PO
== END ==
LOC: M SFHCWAGY 13:03
PROVIDERS: ATTEND Specialist
DX: Z12.4 Encounter for screening for malignant neoplasm of cervix (principal)
CPT/HCPCS: 87624; G0123

== ENCOUNTER → 2021-10-15 | Outpatient (CLI) | payer OTHER | LOC: M LABSMTC 10:35 | PROVIDERS: ATTEND Anesthesiology | DX: Z01.812 Encounter for preprocedural laboratory examination (principal); Z20.822 Contact with and (suspected) exposure to COVID-19 ==

== ENCOUNTER 2021-10-20 06:16 | Day surgery (SDC) | payer OTHER ==
[~2021-10-20] VITALS: Ht 149.9 cm; Wt 84.4 kg
[~2021-10-20 06:16] MED LIST changes: +LR 1,000 ML IV ONE
[2021-10-20] MEDS ORDERED: ROCURONIUM BROMIDE 50 MG/5 ML VIAL As Ordered ONE (07:09)
[2021-10-20] MEDS ORDERED: LIDOCAINE 2% 100MG/5ML SDV (FOR ANES.) As Ordered ONE (07:09)
[2021-10-20] MEDS ORDERED: fentaNYL 250 MCG/5 ML INJECTION As Ordered ONE (07:10)
[2021-10-20] MEDS ORDERED: propofoL 200 MG/20 ML VIAL As Ordered ONE (07:10)
[2021-10-20] MEDS ORDERED: MIDAZOLAM INJ 2MG/2ML VIAL (J2250 PER 1MG) As Ordered ONE (07:10)
[2021-10-20] MEDS ORDERED: SCOPOLAMINE 1MG TRANSDERMAL PATCH TOP ONE (07:20)
[2021-10-20] MEDS ORDERED: LevoFLOXacin 500MG/100ML IV BAG (J1956 PER 250MG) As Ordered ONE (07:25)
[2021-10-20] MEDS ORDERED: LevoFLOXacin IV 500 MG in IV 1 EA IV ONE (07:30)
[2021-10-20] MEDS ORDERED: LIDOCAINE W/EPINEPHRINE 1% 20ML VIAL As Ordered ONE (07:35)
[2021-10-20] MEDS ORDERED: BUPIVACAINE HCL 0.25% 30ML VIAL As Ordered ONE ×2 (07:35→07:37)
[2021-10-20] MEDS ORDERED: ACETAMINOPHEN 1000MG 100ML IV BTL (OFIRMEV) (J0131 PER 10MG) As Ordered ONE (08:05)
[2021-10-20] MEDS ORDERED: KETOROLAC 60MG 2ML VIAL As Ordered ONE (08:05)
[2021-10-20] MEDS ORDERED: dexameTHASONE 4 MG/ML 1ML VIAL (J1100 PER 1MG) As Ordered ONE (08:05)
[2021-10-20] MEDS ORDERED: METOCLOPRAMIDE INJ 10MG/2ML VIAL (J2765 PER 1) As Ordered ONE (08:05)
[2021-10-20] MEDS ORDERED: ONDANSETRON 4MG/2ML VIAL As Ordered ONE (08:05)
[2021-10-20] MEDS ORDERED: SUGAMMADEX SODIUM 500 MG/5 ML VIAL (BRIDION) As Ordered ONE (08:08)
[2021-10-20] MEDS ORDERED: METOCLOPRAMIDE INJ 10MG/2ML VIAL (J2765 PER 1) IV PRN (09:30)
[2021-10-20] MEDS ORDERED: LR 1,000 ML IV SCH (09:30)
[2021-10-20] MEDS ORDERED: ONDANSETRON 4MG/2ML VIAL IV PRN (09:30)
[2021-10-20] MEDS: PERCOCET 5MG/325MG TAB PO PRN ×2 (09:32→10:11)
[2021-10-20] MEDS: fentaNYL 100 MCG/2 ML INJECTION IV PRN ×2 (09:34→09:41)
[2021-10-20] MEDS ORDERED: NORCO, ANEXSIA 5/325MG TABLET (HYDROcodone/ACETAMINOPHEN) PO PRN (09:35)
[2021-10-20] MEDS ORDERED: NS 1,000 ML IV SCH (09:35)
[2021-10-20] MEDS ORDERED: PROMETHAZINE INJ 25 MG/ML VIAL (J2550) IV ONE (11:45)
[2021-10-20 13:30] VITALS: BP 128/70
== END 2021-10-20 14:15 | disposition home or self-care (01) ==
LOC: M SDC 06:16
PROVIDERS: ATTEND Surgery
DX: K80.12 Calculus of gallbladder with acute and chronic cholecystitis without obstruction (principal); Z88.8 Allergy status to other drugs, medicaments and biological substances; Z79.899 Other long term (current) drug therapy
CPT/HCPCS: 47562; 81025; 88304; J0131; J1100; J1885; J1956; J2250; J2405; J2765; J3010

== ENCOUNTER → 2022-06-04 | Outpatient (CLI) | payer OTHER ==
[~2022-06-04] MED LIST changes: +GASTROGRAFIN SOLUTION 30ML (Q9963) As Ordered ONE; +ISOVUE-370 76% 100ML VIAL As Ordered ONE; -LR 1,000 ML IV ONE
== END ==
LOC: M RAD 07:39
PROVIDERS: ATTEND Surgery
DX: K80.20 Calculus of gallbladder without cholecystitis without obstruction (principal); Z90.49 Acquired absence of other specified parts of digestive tract
CPT/HCPCS: 74177; Q9963; Q9967

== ENCOUNTER → 2022-06-07 | Outpatient (REF) | payer OTHER ==
[~2022-06-07] MED LIST changes: -GASTROGRAFIN SOLUTION 30ML (Q9963) As Ordered ONE; -ISOVUE-370 76% 100ML VIAL As Ordered ONE
== END ==
LOC: M SFHCCLAY 15:31
PROVIDERS: ATTEND Physician Assistant
DX: R22.1 Localized swelling, mass and lump, neck (principal)

== ENCOUNTER → 2022-06-08 | Outpatient (REF) | payer OTHER ==
[2022-06-08 11:54] LABS: BASO % 0.9 % (0.0-1.0); EOS # 0.2 10^3/uL (0.0-0.5); EOS % 3.5 % (0.0-3.0); HEMOGLOBIN 12.6 g/dl (12.0-15.5); LYMPH # 1.4 10^3/uL (1.5-5.0); LYMPH % 33.2 % (24.0-44.0); MEAN CORPUSCULAR HGB CONC 32.3 g/dl (32.0-36.5); MEAN CORPUSCULAR VOLUME 89.7 fl (80.0-96.0); MONO # 0.6 10^3/uL (0.0-0.8); MONO % 13.9 % (2.0-8.0); NEUTROPHILS # 2.1 10^3/uL (1.5-8.5); NEUTROPHILS % 48.3 % (36.0-66.0); PLATELET COUNT, AUTOMATED 272 10^3/uL (150-450); RED BLOOD COUNT 4.35 10^6/uL (4.00-5.40); WHITE BLOOD COUNT 4.3 10^3/uL (4.0-10.0)
[2022-06-08 12:37] LABS: ALBUMIN 3.7 GM/DL (3.2-5.2); ALT/SGPT 27 U/L (12-78); BILIRUBIN,TOTAL 0.3 MG/DL (0.2-1.0); BLOOD UREA NITROGEN 15 MG/DL (7-18); CALCIUM LEVEL 8.8 MG/DL (8.5-10.1); CARBON DIOXIDE LEVEL 29 MEQ/L (21-32); CHLORIDE LEVEL 105 MEQ/L (98-107); CREATININE FOR GFR 0.73 MG/DL (0.55-1.30); FREE T3 2.8 PG/ML (2.2-4.0); FREE T4 0.86 NG/DL (0.76-1.46); GLOMERULAR FILTRATION RATE > 60.0 (>60); GLUCOSE, FASTING 88 MG/DL (70-100); POTASSIUM SERUM 4.1 MEQ/L (3.5-5.1); SODIUM LEVEL 138 MEQ/L (136-145); TOTAL PROTEIN 6.8 GM/DL (6.4-8.2)
== END ==
LOC: M SFHCCLAY 07:00
PROVIDERS: ATTEND Physician Assistant
DX: R22.1 Localized swelling, mass and lump, neck (principal)

== ENCOUNTER → 2023-10-25 | Outpatient (REF) | payer OTHER ==
[~2023-10-25] MED LIST changes: -HYDR200T3 PO; +HYDR200T46 PO
[2023-10-25 12:02] LABS: HEMATOCRIT 39.1 % (36.0-47.0); HEMOGLOBIN 12.9 g/dl (12.0-15.5); MEAN CORPUSCULAR HEMOGLOBIN 28.8 pg (27.0-33.0); MEAN CORPUSCULAR VOLUME 87.3 fl (80.0-96.0); PLATELET COUNT, AUTOMATED 256 10^3/uL (150-450); RED BLOOD COUNT 4.48 10^6/uL (4.00-5.40)
[2023-10-25 12:31] LABS: ALBUMIN 3.9 G/DL (3.2-5.2); ALKALINE PHOSPHATASE 54 U/L (46-116); ALT/SGPT 25 U/L (7.0-40); AST/SGOT 20 U/L (<34); BILIRUBIN,TOTAL 0.5 MG/DL (0.3-1.2); BLOOD UREA NITROGEN 21 MG/DL (9-23); CALCIUM LEVEL 8.3 MG/DL (8.5-10.1); CARBON DIOXIDE LEVEL 27 MMOL/L (20-31); CHLORIDE LEVEL 108 MMOL/L (98-107); CHOLESTEROL LEVEL 150 MG/DL (<200); CHOLESTEROL RISK RATIO 2.92 (<5); GLOMERULAR FILTRATION RATE > 60.0 (>60); GLUCOSE, FASTING 79 MG/DL (60-100); HDL CHOLESTEROL 51.2 MG/DL (>40); LDL CHOLESTEROL 82.8 MG/DL (<100); NON-HDL-C 98.8 MG/DL; POTASSIUM SERUM 4.4 MMOL/L (3.5-5.1); SODIUM LEVEL 138 MMOL/L (136-145); THYROID STIMULATING HORMONE 0.713 uIU/ML (0.55-4.78); TOTAL PROTEIN 6.8 G/DL (5.7-8.2); TRIGLYCERIDES LEVEL 80 MG/DL (<150)
[2023-10-25 12:32] LABS: FOLATE > 24.00 NG/ML (>5.4); VITAMIN B12 LEVEL 400 PG/ML (211-911)
[2023-10-25 12:33] LABS: FREE T4 1.16 NG/DL (0.89-1.76)
[2023-10-25 12:35] LABS: TOTAL T3 102.8 NG/DL (60.0-181.0)
== END ==
LOC: M SFHCCLAY 08:35
PROVIDERS: ATTEND Family Medicine
DX: E04.1 Nontoxic single thyroid nodule (principal); D64.9 Anemia, unspecified; Z13.220 Encounter for screening for lipoid disorders

== ENCOUNTER → 2024-02-06 | Outpatient (REF) | payer OTHER ==
[2024-02-06 18:08] LABS: BASO # 0.1 10^3/uL (0.0-0.2); BASO % 0.8 % (0.0-1.0); EOS # 0.1 10^3/uL (0.0-0.5); EOS % 2.3 % (0.0-3.0); HEMATOCRIT 38.7 % (36.0-47.0); HEMOGLOBIN 12.8 g/dl (12.0-15.5); LYMPH # 1.9 10^3/uL (1.5-5.0); LYMPH % 31.1 % (24.0-44.0); MEAN CORPUSCULAR HGB CONC 33.1 g/dl (32.0-36.5); MEAN CORPUSCULAR VOLUME 87.6 fl (80.0-96.0); MONO # 0.8 10^3/uL (0.0-0.8); MONO % 13.7 % (2.0-8.0); NEUTROPHILS # 3.2 10^3/uL (1.5-8.5); NEUTROPHILS % 51.8 % (36.0-66.0); PLATELET COUNT, AUTOMATED 291 10^3/uL (150-450); RED BLOOD COUNT 4.42 10^6/uL (4.00-5.40); WHITE BLOOD COUNT 6.1 10^3/uL (4.0-10.0)
[2024-02-06 18:24] LABS: C REACTIVE PROTEIN QUANTITATIV < 0.40 MG/DL (<1.0)
[2024-02-06 18:26] LABS: ALBUMIN 3.8 G/DL (3.2-5.2); ALKALINE PHOSPHATASE 61 U/L (46-116); ALT/SGPT 19 U/L (7.0-40); AST/SGOT 10 U/L (<34); BILIRUBIN,TOTAL 0.4 MG/DL (0.3-1.2); BLOOD UREA NITROGEN 19 MG/DL (9-23); CALCIUM LEVEL 8.8 MG/DL (8.5-10.1); CARBON DIOXIDE LEVEL 29 MMOL/L (20-31); CHLORIDE LEVEL 105 MMOL/L (98-107); CREATININE FOR GFR 0.72 MG/DL (0.55-1.30); GLOMERULAR FILTRATION RATE > 60.0 (>60); GLUCOSE, FASTING 74 MG/DL (60-100); POTASSIUM SERUM 4.4 MMOL/L (3.5-5.1); SODIUM LEVEL 138 MMOL/L (136-145); TOTAL PROTEIN 6.7 G/DL (5.7-8.2)
[2024-02-06 18:41] LABS: ERYTHROCYTE SEDIMENTATION RATE 25 mm/hr (0-20)
== END ==
LOC: M LABDRAWC 17:12
PROVIDERS: ATTEND Nurse Practitioner Family
DX: M06.9 Rheumatoid arthritis, unspecified (principal)

== ENCOUNTER → 2024-04-04 | Outpatient (REF) | payer OTHER | LOC: M SFHCWAGY 09:43 | PROVIDERS: ATTEND Specialist | DX: Z12.4 Encounter for screening for malignant neoplasm of cervix (principal) | CPT/HCPCS: 87624; G0123 ==

== ENCOUNTER → 2024-05-16 | Outpatient (REF) | payer OTHER | LOC: M SFHCCLAY 14:14 | PROVIDERS: ATTEND Physician Assistant | DX: R50.9 Fever, unspecified (principal) ==

== ENCOUNTER → 2024-11-12 | Outpatient (REF) | payer OTHER ==
[2024-11-12 18:53] LABS: HEMATOCRIT 38.7 % (36.0-47.0); HEMOGLOBIN 12.7 g/dl (12.0-15.5); MEAN CORPUSCULAR HEMOGLOBIN 28.7 pg (27.0-33.0); MEAN CORPUSCULAR HGB CONC 32.8 g/dl (32.0-36.5); MEAN CORPUSCULAR VOLUME 87.4 fl (80.0-96.0); PLATELET COUNT, AUTOMATED 271 10^3/uL (150-450); RED BLOOD COUNT 4.43 10^6/uL (4.00-5.40); WHITE BLOOD COUNT 4.5 10^3/uL (4.0-10.0)
[2024-11-12 19:11] LABS: ALKALINE PHOSPHATASE 53 U/L (35-104); ALT/SGPT 16 U/L (7.0-40); AST/SGOT 15 U/L (<34); BILIRUBIN,TOTAL 0.4 MG/DL (0.3-1.2); BLOOD UREA NITROGEN 22 MG/DL (9-23); CALCIUM LEVEL 8.9 MG/DL (8.5-10.1); CARBON DIOXIDE LEVEL 27 MMOL/L (20-31); CHLORIDE LEVEL 104 MMOL/L (98-107); CHOLESTEROL LEVEL 118 MG/DL (<200); CHOLESTEROL RISK RATIO 2.71 (<5); CREATININE FOR GFR 0.75 MG/DL (0.55-1.30); GLOMERULAR FILTRATION RATE > 60.0 (>58); GLUCOSE, FASTING 80 MG/DL (60-100); HDL CHOLESTEROL 43.5 MG/DL (>40); LDL CHOLESTEROL 59.5 MG/DL (<100); NON-HDL-C 74.5 MG/DL; POTASSIUM SERUM 4.2 MMOL/L (3.5-5.1); SODIUM LEVEL 140 MMOL/L (136-145); TOTAL PROTEIN 7.1 G/DL (5.7-8.2); TRIGLYCERIDES LEVEL 75 MG/DL (<150)
[2024-11-12 19:12] LABS: FREE T4 1.28 NG/DL (0.89-1.76); THYROID STIMULATING HORMONE 0.811 uIU/ML (0.55-4.78)
== END ==
LOC: M SFHCCLAY 14:46
PROVIDERS: ATTEND Family Medicine
DX: D64.9 Anemia, unspecified (principal); Z13.220 Encounter for screening for lipoid disorders; E04.1 Nontoxic single thyroid nodule; Z13.21 Encounter for screening for nutritional disorder

== ENCOUNTER → 2025-03-18 | Outpatient (REF) | payer OTHER ==
[2025-03-18 18:30] LABS: PLATELET COUNT, AUTOMATED 259 10^3/uL (150-450)
[2025-03-18 18:33] LABS: ALT/SGPT 16 U/L (7.0-40); AST/SGOT 19 U/L (<34); CALCIUM LEVEL 9.2 MG/DL (8.5-10.1); CARBON DIOXIDE LEVEL 25 MMOL/L (20-31); CHLORIDE LEVEL 105 MMOL/L (98-107); CREATININE FOR GFR 0.73 MG/DL (0.55-1.30); FREE T4 1.30 NG/DL (0.89-1.76); GLOMERULAR FILTRATION RATE > 90.0 (>58); IRON (FE) 62 UG/DL (50-170); MAGNESIUM LEVEL 2.1 MG/DL (1.8-2.4); POTASSIUM SERUM 4.3 MMOL/L (3.5-5.1); SODIUM LEVEL 139 MMOL/L (136-145)
[2025-03-18 18:35] LABS: VITAMIN B12 LEVEL 374 PG/ML (211-911)
[2025-03-18 18:37] LABS: TOTAL T3 97.6 NG/DL (60.0-181.0)
== END ==
LOC: M SFHCCLAY 10:53
PROVIDERS: ATTEND Family Medicine
DX: L65.9 Nonscarring hair loss, unspecified (principal); D64.9 Anemia, unspecified; E04.1 Nontoxic single thyroid nodule; E55.9 Vitamin D deficiency, unspecified

== ENCOUNTER → 2025-06-13 | Outpatient (REF) | payer OTHER ==
[2025-06-16 03:08] LABS: HPV APTIMA Not Detected (Not Detected)
== END ==
LOC: M SFHCWAGY 11:29
PROVIDERS: ATTEND Specialist
DX: Z01.419 Encounter for gynecological examination (general) (routine) without abnormal findings (principal)
CPT/HCPCS: 87624; G0123

== ENCOUNTER → 2025-06-17 | Outpatient (REF) | payer OTHER ==
[2025-06-17 13:36] LABS: PLATELET COUNT, AUTOMATED 289 10^3/uL (150-450)
[2025-06-17 13:40] LABS: ALT/SGPT 22 U/L (7.0-40); AST/SGOT 19 U/L (<34); C REACTIVE PROTEIN QUANTITATIV < 0.50 MG/DL (<1.0); CALCIUM LEVEL 9.0 MG/DL (8.5-10.1); CARBON DIOXIDE LEVEL 26 MMOL/L (20-31); CHLORIDE LEVEL 105 MMOL/L (98-107); CREATININE FOR GFR 0.80 MG/DL (0.55-1.30); GLOMERULAR FILTRATION RATE > 90.0 (>58); POTASSIUM SERUM 4.3 MMOL/L (3.5-5.1); SODIUM LEVEL 139 MMOL/L (136-145)
== END ==
LOC: M LABDRAWC 12:04
PROVIDERS: ATTEND Registered Nurse Case Management
DX: Z79.899 Other long term (current) drug therapy (principal)